=== PATIENT | male | born 1985 | race Two or more races ===

== ENCOUNTER 2020-05-31 04:22 | Emergency (ER) | payer OTHER ==
[~2020-05-31] VITALS: Ht 172.7 cm; Wt 77.1 kg
[2020-05-31] MEDS ORDERED: LIDOCAINE 2%-EPI 1:100,000 20 ML VIAL ONE (04:46)
--- NOTE | 2020-05-31 04:58 | NUR ---
Xray at bedside. Laceration setup at bedside. Laceration site irrigated with normal saline & betadine.
[2020-05-31] MEDS ORDERED: TDAP DIPH,PERTUSS,TET VAC/PF 0.5 ML DISP.SYRIN IM ONE ×2 (05:00→05:30)
[2020-05-31] MEDS ORDERED: SODIUM BICARBONATE 4.2 % (NEUT) 5 ML VIAL TP ONE (05:00)
[2020-05-31] MEDS ORDERED: LIDOCAINE HCL 2% 20 ML VIAL TP ONE (05:00)
[2020-05-31] MEDS ORDERED: CEFTRIAXONE 1 G VIAL IM ONE (05:00)
[2020-05-31] MEDS ORDERED: LIDOCAINE HCL 1% 20 ML VIAL ONE (05:29)
[2020-05-31] MEDS ORDERED: CEFTRIAXONE 1 G VIAL ONE (05:29)
[2020-05-31] MEDS ORDERED: HYDROCODONE/APAP 5-325MG TABLET ONE (05:54)
[2020-05-31] MEDS ORDERED: HYDROCODONE/APAP 5-325MG TABLET PO ONE (06:00)
--- NOTE | 2020-05-31 06:00 | NUR ---
Patient discharged to home in stable condition. Written and verbal after care instructions given. Patient verbalizes understanding of instructions. Stressed follow up or return to ER for worsening s/s. Patient left ER in stable condition with his boss Prashant, who will drive him home.
[2020-05-31 06:02] VITALS: BP 121/63
== END 2020-05-31 06:02 | disposition home or self-care (01) ==
LOC: ER 04:27
DX: S61.212A Laceration without foreign body of right middle finger without damage to nail, initial encounter (principal); S61.214A Laceration without foreign body of right ring finger without damage to nail, initial encounter; W22.8XXA Striking against or struck by other objects, initial encounter; Y92.89 Other specified places as the place of occurrence of the external cause
CPT/HCPCS: 12002; 73140; 90471; 90715; 96372; 99284; J0696; J3490 ×2; A4217; A4663

== ENCOUNTER 2020-06-02 16:24 | Emergency (ER) | payer OTHER ==
[~2020-06-02] VITALS: Ht 175.3 cm; Wt 72.6 kg
--- NOTE | 2020-06-02 17:26 | NUR ---
Patient discharged to home in stable condition. Written and verbal after care instructions given. Patient verbalizes understanding of instructions. Stressed follow up or return to ER for worsening s/s.
[2020-06-02 17:27] VITALS: BP 115/55
== END 2020-06-02 17:27 | disposition home or self-care (01) ==
LOC: ER 16:27
DX: S61.214D Laceration without foreign body of right ring finger without damage to nail, subsequent encounter (principal); S61.212D Laceration without foreign body of right middle finger without damage to nail, subsequent encounter; W45.8XXD Other foreign body or object entering through skin, subsequent encounter
CPT/HCPCS: A4663

== ENCOUNTER 2022-08-08 02:33 | Emergency (ER) | payer OTHER ==
[~2022-08-08] VITALS: Ht 175.3 cm; Wt 72.6 kg
[2022-08-08] MEDS ORDERED: TDAP DIPH,PERTUSS,TET VAC/PF 0.5 ML DISP.SYRIN IM ONE ×2 (02:46→03:15)
[2022-08-08 05:04] VITALS: BP 145/68
== END 2022-08-08 03:35 | disposition home or self-care (01) ==
LOC: ER 02:33
DX: S61.211A Laceration without foreign body of left index finger without damage to nail, initial encounter (principal); W25.XXXA Contact with sharp glass, initial encounter; Y92.89 Other specified places as the place of occurrence of the external cause; R03.0 Elevated blood-pressure reading, without diagnosis of hypertension
CPT/HCPCS: 90715; A4663